=== PATIENT | female | born 1975 | race Hispanic/Latino ===

== ENCOUNTER 2018-04-21 22:19 | Emergency (ER) | payer MEDICAID ==
[2018-04-21 22:19] VITALS: BMI 37.9
[2018-04-21 22:39] VITALS: RESP 20
[2018-04-21 23:27] LABS: BASO # 0.1 K/uL (0.0-0.2); BASO % 1.1 % (0.0-2.0); EOS # 0.3 K/uL (0.0-0.7); EOS % 3.3 % (0.0-4.0); HEMOGLOBIN 13.1 g/dL (11.0-16.0); LYMPH # 2.5 K/uL (1.0-4.3); LYMPH % 25.4 % (20.0-40.0); MEAN CELL VOLUME 79.3 fL (81.0-99.0); MEAN CORPUSCULAR HEMOGLOBIN 27.1 pg (27.0-31.0); MEAN CORPUSCULAR HGB CONC 34.2 g/dL (33.0-37.0); MONO % 9.6 % (0.0-10.0); NEUT # 6.1 K/uL (1.8-7.0); NEUT % 60.6 % (50.0-75.0); NRBC % 0.2 % (0.0-2.0); RBC 4.81 Mil/uL (3.80-5.20); RED CELL DISTRIBUTION WIDTH 13.4 % (11.5-14.5)
[2018-04-21 23:40] LABS: CALCIUM 9.2 mg/dl (8.6-10.4); GFR NON-AFRICAN AMERICAN > 60
[2018-04-21 23:50] LABS: ALB/GLOB RATIO 1.1 (1.0-2.1); ALT/SGPT 31 U/L (9-52); AST/SGOT 48 U/L (14-36); BLOOD UREA NITROGEN 22 mg/dL (7-17)
[2018-04-22] MEDS ORDERED: Sodium Chloride 0.9% 1,000 ML IV ONE (00:03)
[2018-04-22] MEDS ORDERED: Sodium Chloride 0.9% 1,000 ML ONE (00:13)
--- NOTE | 2018-04-22 00:28 | C.PDOC ---
History Of Present Illness 43 year old female presents to the emergency department with complaints of abnormal vaginal bleeding. Patient states that she recently had a positive single test 3d ago. She came in today because she has bled enough to use four pads. Patient states that she is also experiencing pain in her lower abdomen, which is similiar to her normal menstrual cramps. She states her last menstrual period was at the end of February. She denies trauma, nausea, vomiting, fever, and chills. Time Seen by Provider: 04/21/18 23:13 Chief Complaint (Nursing): Female Genitourinary History Per: Patient History/Exam Limitations: no limitations Onset/Duration Of Symptoms: Hrs Current Symptoms Are (Timing): Still Present Associated Symptoms: Other (vaginal bleeding). denies: Fever, Chills, Nausea, Vomiting, Urinary Symptoms Last Menstral Period: End of February 2018 Past Medical History Reviewed: Historical Data, Nursing Documentation, Vital Signs Vital Signs: Last Vital Signs Temp 98.7 F 04/22/18 01:18 Pulse 75 04/22/18 01:18 Resp 20 04/22/18 01:18 BP 144/86 04/22/18 01:18 Pulse Ox 99 04/22/18 21:58 - Medical History PMH: Anxiety, Asthma, Bipolar Disorder, Depression Denies: Diabetes, Hepatitis, HIV, HTN, Chronic Kidney Disease, Seizures, Sexually Transmitted Disease Surgical History: No Surg Hx - [facility] Procedures ARTIF RUPT MEMBRANES NEC (05/21/02) INJECT/INFUSE NEC (10/22/13) LOW CERVICAL (05/21/02) MEDICATION MANAGEMENT (02/02/16) NEBULIZER THERAPY (01/25/03) Family History: States: Unknown Family Hx - Social History Hx Tobacco Use: Yes Hx Alcohol Use: Yes Hx Substance Use: No - Immunization History Hx Tetanus Toxoid Vaccination: Yes Hx Influenza Vaccination: No Hx Pneumococcal Vaccination: Yes Review Of Systems Constitutional: Negative for: Fever, Chills Gastrointestinal: Negative for: Nausea, Vomiting Genitourinary: Positive for: Vaginal Bleeding Physical Exam - Physical Exam Appears: Well, Non-toxic, In Acute Distress Skin: Warm, Dry Head: Atraumatic, Normacephalic Eye(s): bilateral: Normal Inspection, PERRL, EOMI Neck: Normal, Supple, Other (no meningeal signs) Chest: Symmetrical, No Tenderness Cardiovascular: Rhythm Regular, No Murmur Respiratory: No Rales, No Rhonchi, No Wheezing Gastrointestinal/Abdominal: Soft, Tenderness (suprapubic tenderness), No Guarding, No Rebound Extremity: Normal ROM (all extremities) Neurological/Psych: Oriented x3, Normal Speech, Normal Cognition ED Course And Treatment - Laboratory Results Result Diagrams: 04/21/18 23:12 04/21/18 23:12 O2 Sat by Pulse Oximetry: 99 (RA) Pulse Ox Interpretation: Normal Medical Decision Making Medical Decision Making: Well appearing 43 year old female p/w vaginal bleeding concerning for miscarriage. No RLQ pain or LLQ pain. No diarrhea, Nausea or vomiting. No hx of stds or vaginal d/c other than blood. No clots in d/c. Plan: ABO/RH Type Blood Bank Type and Screen Beta-HCG Quantitative CMP CBC NaCl IV Fluids Tylenol 650mg PO US Transvag BHCG <2 Imaging TVUS w/ closed cervix and either RPOC or (clinical correlation recc) Pt deffered pelvic exam given TVUS done. I explained to pt it is important for me to fully assess her pelvic area for other sources or bleeding or RPOC: she notes she already had a TVUS And does not need a pelvic to determine bleeding or RPOC. Given AOx3 and of normal reasonable state of mind, will defer pelvic. Appreciate conversation w/ Dr. Dean (OBGYN) Given HCG<2, unlikely miscarriage, given would expect to have some elevated HCG if having miscarriage and likely pt had a false positive preg. Labs unremarkable. Pain improved clear for d/c home Disposition - Disposition Referrals: Diana Dean MD [Staff Provider] - Disposition: HOME/ ROUTINE Disposition Time: 01:27 Condition: GOOD Instructions: Menstruation Forms: [employer] (Mongolian) - Clinical Impression Clinical Impression: Menstrual bleeding problem - Scribe Statement The provider has reviewed the documentation as recorded by the Scribe (Sergio Cuevas) Provider Attestation: All medical record entries made by the Scribe were at my direction and personally dictated by me. I have reviewed the chart and agree that the record accurately reflects my personal performance of the history, physical exam, medical decision making, and the department course for this patient. I have also personally directed, reviewed, and agree with the discharge instructions and disposition.
[2018-04-22 01:19] VITALS: BP 144/86; PULSE 75; TEMP 98.7
[2018-04-22 01:28] VITALS: O2SAT 99
--- NOTE | 2018-04-22 13:14 | US ---
Pelvic ultrasound History: Vaginal bleeding. Comparison: None available. Technique: Real-time sonography was performed through the pelvis utilizing transabdominal and transvaginal techniques. Findings: Uterus: 9.9 x 4.9 x 5.9 centimeters. Heterogeneous echotexture. Anteverted. Thickened heterogeneous endometrium measuring 1.1 centimeters in thickness with mild vascularity. Nabothian cysts noted at the level of the cervix. No free fluid in the pelvic cul-de-sac. Right ovary: 4.4 x 2.6 x 3.4 centimeters. Normal flow. Left ovary: 4.0 x 2.9 x 2.5 centimeters. Normal flow. Impression: No discrete intrauterine gestation identified. In the setting of a positive test, differential includes early intrauterine versus missed versus ectopic . Clinical correlation. Mildly thickened, slightly heterogeneous endometrium with vascularity. Retained products of conception not excluded in the proper clinical setting. Clinical correlation is needed. Nabothian cysts at the level of the cervix. These findings were preliminarily reported at 1:19 a.m. on 04/22/[address] Juan Bradley from [facility].
== END 2018-04-22 01:42 | disposition home or self-care (01) ==
LOC: C.ER 22:19
DX: N93.9 Abnormal uterine and vaginal bleeding, unspecified (principal); Z72.0 Tobacco use
CPT/HCPCS: 76830; 76856; 80053; 84702; 85025; 86850; 86900; 96360; 99284; J7030